=== PATIENT | female | born 1995 | race Two or more races ===

== ENCOUNTER 2018-08-17 00:56 | Emergency (ER) | payer OTHER ==
[~2018-08-17] VITALS: Ht 152.4 cm; Wt 73.0 kg
[~2018-08-17 00:56] MED LIST: IBUPROFEN600 M1 PO
[2018-08-17 01:05] VITALS: BP 136/86
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
[2018-08-17] MEDS ORDERED: IBUPROFEN600 MG ORAL (01:27)
[2018-08-17] MEDS ORDERED: HYDROCODON-ACE1 EA15 ORAL (01:27)
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
--- NOTE | 2018-08-17 01:40 | NUR ---
ER DISCHARGE NOTE: Patient is cleared to be discharged per ERMD, pt is aox4, on room air, with stable vital signs. pt was given dc and prescription instructions, pt was able to verbalize understanding, pt id band removed without complications. pt is able to ambulate with steady gait. pt took all belongings.
[2018-08-17 01:41] VITALS: BP 125/80
--- NOTE | 2018-08-17 09:40 | Diagnostic Imaging Report ---
Indication: Left thigh pain Comparison: None Findings: 2 views of the left femur were obtained. No acute fractures, malalignment, erosions or periostitis are identified. Soft tissues are unremarkable. Impression: Negative examination of the femur
== END 2018-08-17 01:49 | disposition home or self-care (01) ==
LOC: EMR 01:15
DX: S16.1XXA Strain of muscle, fascia and tendon at neck level, initial encounter (principal); S70.12XA Contusion of left thigh, initial encounter; V49.9XXA Car occupant (driver) (passenger) injured in unspecified traffic accident, initial encounter; Y92.411 Interstate highway as the place of occurrence of the external cause
CPT/HCPCS: 99283

== ENCOUNTER 2020-04-12 20:26 | Emergency (ER) | payer OTHER ==
[~2020-04-12] VITALS: Ht 154.9 cm; Wt 72.6 kg
[~2020-04-12 20:26] MED LIST changes: +HYDROCODON-ACE1 EA15 ORAL; +IBUPROFEN600 MG ORAL
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
[2020-04-12 20:47] VITALS: BP 139/88
--- NOTE | 2020-04-12 21:51 | NUR ---
ED Nurse Note: patient off floor for ct scan.
--- NOTE | 2020-04-12 22:00 | NUR ---
ED Nurse Note: patient back on floor from ct scan.
--- NOTE | 2020-04-12 22:45 | Diagnostic Imaging Report ---
CT head without contrast History: Pain, trauma Technique: Axial CT of the head with coronal, sagittal reformatted images. Technique more: CTDI is 53.4 mGy and DLP is 1063.3 mGy-cm. Technique more: One or more of the following dose reduction techniques were used: automated exposure control, adjustment of the mA and/or kV according to patient size, use of iterative reconstruction technique. Comparison: None Findings: Taveras-white matter differentiation is seen to be normal. Ventricles, extra-axial CSF spaces are seen to be unremarkable. Visualized paranasal sinuses, mastoid air cells are normal. Partially visualized nasal fractures. Please see CT facial bones. Impression: 1. Nondisplaced nasal bone fracture. Please see CT facial bones. 2. No acute intracranial finding.
--- NOTE | 2020-04-12 22:51 | Diagnostic Imaging Report ---
CT facial bones History: Pain, trauma Technique: Axial CT of the facial bones with coronal, sagittal reformatted images. Technique more: CTDI is 15.3 mGy and DLP is 338.4 mGy-cm. Technique more: One or more of the following dose reduction techniques were used: automated exposure control, adjustment of the mA and/or kV according to patient size, use of iterative reconstruction technique. Comparison: Findings: Nondisplaced fracture of the nasal bones. Anterior nasal septum fracture. Paranasal sinuses, mastoid air cells are normal. Mild right supraorbital scalp swelling and laceration. Mild bilateral middle turbinate efrain bullosa. Bilateral maxillary impacted wisdom tooth. Impression: 1. Nondisplaced fracture anterior bilateral nasal bone and fracture at anterior tip of the nasal septum.
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
[2020-04-12] MEDS ORDERED: ACETAMINOPHEN-1 EAC1 ORAL (23:33)
[2020-04-12] MEDS ORDERED: CYCLOBENZAPRINE10 MG ORAL (23:33)
[2020-04-12] MEDS ORDERED: IBUPROFEN600 M1 ORAL (23:33)
[2020-04-12 23:42] VITALS: BP 139/88
--- NOTE | 2020-04-12 23:43 | NUR ---
ED Nurse Note: Patient cleared by health care Provider for discharge. DC instructions/prescription was given and explained to pt and verbalized understanding of teachings. All medical deviecs such as ID band removed. Pt is AAO x4, ambulatory and left with all personal belongings.
== END 2020-04-12 23:43 | disposition home or self-care (01) ==
LOC: EMR 20:45
DX: S02.2XXA Fracture of nasal bones, initial encounter for closed fracture (principal); S01.111A Laceration without foreign body of right eyelid and periocular area, initial encounter; S13.4XXA Sprain of ligaments of cervical spine, initial encounter; V43.52XA Car driver injured in collision with other type car in traffic accident, initial encounter; Y92.411 Interstate highway as the place of occurrence of the external cause
CPT/HCPCS: 70450; 70486; Z7502; 99284